=== PATIENT | male | born 1955 | race Caucasian/White ===

== ENCOUNTER 2017-04-07 15:02 | Emergency (ER) | payer OTHER ==
--- NOTE | 2017-04-07 15:23 | PDOC ---
Rapid Medical Evaluation Time Seen by Provider: 04/07/17 15:19 Medical Evaluation: 04/07/17 15:19 Pt presents to the ED: tripped and fell this am and injured rt arm Pt on brief exam: rt wrist tenderness Pt ordered for: xray Pt to proceed to the ED 04/07/17 15:21 Discharge Disposition - Diagnosis Wrist injury - Referrals - Patient Instructions - Post Discharge Activity
[2017-04-07 15:24] VITALS: BP 153/79; PULSE 83; TEMP 98.3; BMI 24.2
--- NOTE | 2017-04-07 16:37 | PDOC ---
History of Present Illness - General Chief Complaint: Injury Stated Complaint: RT HAND/WRIST PAIN Time Seen by Provider: 04/07/17 15:19 History Source: Patient Exam Limitations: No Limitations - History of Present Illness Initial Comments: 04/07/17 16:02 slipped and fell onto right wrist this morning on ice. Fell onto outstretched hand. Complaints of pain and swelling to wrist with immobility. No other injury 04/07/17 16:40 Occurred: reports: just prior to arrival Severity: reports: moderate Pain Location: reports: upper extremity (right wrist and hand) Modifying Factors: improves with: cold therapy Associated Symptoms (Fall): denies symptoms Past History - Travel Traveled outside of the country in the last 30 days: No Close contact w/someone who was outside of country & ill: No - Past Medical History Allergies/Adverse Reactions: Allergies Allergy/AdvReac Type Severity Reaction Status Date / Time No Known Allergies Allergy Verified 04/07/17 15:19 Home Medications: Ambulatory Orders Oxycodone HCl/Acetaminophen [Percocet 5-325 mg Tablet -] 1 - 2 tab PO Q4H PRN # 10 tablet MDD 4 04/07/17 COPD: No - Suicide/Smoking/Psychosocial Hx Smoking History: Never smoked Review of Systems - Review of Systems Able to Perform ROS?: Yes Is the patient limited Fijian proficient: Yes Constitutional: Yes: Symptoms Reported, See HPI. No: Fever, Malaise HEENTM: Yes: See HPI. No: Symptoms Reported Musculoskeletal: Yes: Symptoms Reported, See HPI, Joint Pain (right wrist), Joint Swelling, Joint Stiffness All Other Systems: Reviewed and Negative *Physical Exam - Vital Signs Last Vital Signs Temp Pulse Resp BP Pulse Ox 98.3 F 83 16 153/79 96 04/07/17 15:20 04/07/17 15:20 04/07/17 15:20 04/07/17 15:20 04/07/17 15:20 - Physical Exam General Appearance: Yes: Nourished, Appropriately Dressed, Apparent Distress HEENT: positive: JOHN, Normal ENT Inspection, TMs Normal, Pharynx Normal Musculoskeletal: positive: Normal Inspection Extremity: positive: Normal Capillary Refill, Normal Range of Motion. negative : Normal Inspection (pollen and painful distal radius and ulna, without crepitus or step-offs but unable to flex or extend at wrist joint. Squeezing reproduces pain at wrist, and complains of snuffbox tenderness. Has range of motion of fingers and neurovascular intact.) Integumentary: positive: Normal Color, Dry, Warm, Swelling, Ecchymosis Neurologic: positive: automation control integrator II-XII NML intact, Fully Oriented, Alert, Normal Mood/ Affect Procedures - Splinting Splint Location: Left: Hand (thumb spica splint), Right: Wrist Post-Proc Neuro Vasc Exam: normal Sling: Yes Progress Note - Progress Note Progress Note: Right wrist sprain, splinted with sling we'll provide a few Percocet for severe pain and encourage follow up in one to 2 days for reevaluation and possible casting *DC/Admit/Observation/Transfer Diagnosis at time of Disposition: Wrist injury Qualifiers: Encounter type: initial encounter Laterality: right Qualified Code(s): S69.91XA - Unspecified injury of right wrist, hand and finger(s), initial encounter - Discharge Dispostion Disposition: HOME Condition at time of disposition: Stable Admit: No - Referrals Referrals: London Rand MD [Staff Physician] - - Patient Instructions Printed Discharge Instructions: DI for Wrist Sprain Additional Instructions: Rest, ice to area on and off for 15 minutes 4-6 times a day Avoid heavy lifting or exercise until pain and swelling is resolved or until further directed Keep area highly elevated to reduce swelling Use splints/Cain wrap as directed Followup with orthopedist in one to 2 days if not improving, if significantly improved may wait one week for followup with orthopedist May use ibuprofen 2-200 mg tablets every 6 hours as needed for pain - Post Discharge Activity Forms/Work/School Notes: Back to Work
== END 2017-04-07 16:51 | disposition home or self-care (01) ==
LOC: JERFT 15:02
PROC: 2W3CX1Z Immobilization of Right Lower Arm using Splint (ICD-10-PCS; principal; 2017-04-07)
DX: S69.81XA Other specified injuries of right wrist, hand and finger(s), initial encounter (principal); W00.0XXA Fall on same level due to ice and snow, initial encounter; Y93.89 Activity, other specified; Y92.89 Other specified places as the place of occurrence of the external cause
CPT/HCPCS: 29125; 73110-TC-RT; 99282-25

== ENCOUNTER 2018-10-16 11:44 | Inpatient (IN) | payer OTHER ==
--- NOTE | 2018-10-16 15:28 | PDOC ---
History of Present Illness - General Chief Complaint: Wound Stated Complaint: LOWER BACK PAIN/ BLACKNESS IN FEET/ DIABETIC Time Seen by Provider: 10/16/18 15:11 History Source: Patient Exam Limitations: No Limitations - History of Present Illness Initial Comments: 10/16/18 15:28 63-year-old male with history of hypertension and diabetes presents ED for nonhealing red area to bilateral inner feet worse on the left foot. Patient states went to his primary care physician on the and was prescribed topical creams including Silvadene and placed on clindamycin which he states has been taking for the past 2 days with no improvement. Patient complains of soreness to the area along with mild itching. Patient denies elevated glucose, recent travel, recent injury, or radiation of pain. Severity: moderate Associated Symptoms: reports: other Past History - Travel Traveled outside of the country in the last 30 days: No Close contact w/someone who was outside of country & ill: No - Past Medical History Allergies/Adverse Reactions: Allergies Allergy/AdvReac Type Severity Reaction Status Date / Time No Known Allergies Allergy Verified 10/16/18 11:48 Home Medications: Ambulatory Orders Oxycodone HCl/Acetaminophen [Percocet 5-325 mg Tablet -] 1 - 2 tab PO Q4H PRN # 10 tablet MDD 4 04/07/17 COPD: No Diabetes: Yes - Surgical History Cardiac Surgery: Yes (PACEMAKER) - Immunization History Immunization Up to Date: No - Suicide/Smoking/Psychosocial Hx Smoking History: Never smoked Hx Alcohol Use: No Drug/Substance Use Hx: No Patient Lives Alone: No Lives with/in: spouse/SO Review of Systems - Review of Systems Able to Perform ROS?: No Is the patient limited Thai proficient: No Constitutional: No: Symptoms Reported HEENTM: No: Symptoms Reported Respiratory: No: Symptoms reported Cardiac (ROS): No: Symptoms Reported ABD/GI: No: Symptoms Reported Musculoskeletal: Yes: Joint Pain (analy feet) Integumentary: Yes: Change in Color, Erythema Neurological: No: Paresthesia, Weakness Endocrine: No: Symptoms Reported Hematologic/Lymphatic: No: Symptoms Reported *Physical Exam - Vital Signs Last Vital Signs Temp Pulse Resp BP Pulse Ox 97.3 F L 77 18 129/71 99 10/16/18 11:49 10/16/18 11:49 10/16/18 11:49 10/16/18 11:49 10/16/18 11:49 - Physical Exam General Appearance: Yes: Nourished, Appropriately Dressed. No: Apparent Distress Vascular Pulses: Dorsalis-Pedis (R): 2+, Doralis-Pedis (L): 2+ Extremity: positive: Normal Capillary Refill, Normal Range of Motion. negative : Normal Inspection (noted 7 x 8 cm erythematous area to medial aspect of midfoot. No increased warmth. No raised masses no palpable fluctuance. Left foot greater than the right) Neurologic: positive: Motor Strength 5/5 (ambulatory) ED Treatment Course - LABORATORY CBC & Chemistry Diagram: 10/17/18 06:30 10/17/18 06:30 Medical Decision Making - Medical Decision Making 10/16/18 [id number] chief complaint: redness and pain to bilateral mid foot. Placed on clindamycin and topical creams on the which he states has not improved discomfort or appearance patient does state purchase new shoes approximately one week ago which he has been wearing for the past few days. Exam: Noted erythematous circular area approximately 7 centimeters in circumference of the left foot and 4 cm to the right foot. Palpable pulses and no fluctuance noted Plan: Secondary to patient's history of diabetes, patient will have lab work done including lactic acid duplex of the lower extremity along with Percocet. *DC/Admit/Observation/Transfer Diagnosis at time of Disposition: Cellulitis of both feet - Referrals - Patient Instructions - Post Discharge Activity
[2018-10-16 16:13] LABS: BASO % 0.8 % (0-2.0); HEMOGLOBIN 16.1 GM/dL (11.7-16.9); LYMPH % 21.4 % (8-40); MCH 29.2 pg (25.7-33.7); MCHC 34.3 g/dl (32.0-35.9); MEAN CELL VOLUME 85.3 fl (80-96); MEAN PLT VOLUME 8.2 fl (7.5-11.1); MONO % 8.5 % (3.8-10.2); NEUT % 68.3 % (42.8-82.8); PLATELET COUNT 258 K/MM3 (134-434); RBC 5.51 M/mm3 (4.00-5.60); RDW 12.4 % (11.9-15.9)
[2018-10-16 16:39] LABS: INR 0.94 (0.83-1.09); PROTHROMBIN TIME (PATIENT) 11.1 SEC (9.7-13.0)
--- NOTE | 2018-10-16 16:43 | PDOC ---
*Physical Exam - Vital Signs Last Vital Signs Temp Pulse Resp BP Pulse Ox 97.3 F L 77 18 129/71 99 10/16/18 11:49 10/16/18 11:49 10/16/18 11:49 10/16/18 11:49 10/16/18 11:49 - Physical Exam Comments: 10/16/18 16:41 Honorio reports 2 weeks with redness to b/l feet. Was seen at [facility] by Dr. Gomez but has not had any improvement of his feet . Patient states he did not take his diabetes medicine today. Patient has IDDM. ultrasound negative for dvt. 10/16/18 20:27 x-ray negative for osteo, no soft tissue gas appreciated. Discussed case with admitting hospitalist MD Razo, who accepts patient for inpatient admission. ED Treatment Course - LABORATORY CBC & Chemistry Diagram: 10/16/18 16:00 10/16/18 16:00 - ADDITIONAL ORDERS Additional order review: Laboratory Results 10/16/18 10/16/18 16:00 16:00 PT with INR 11.10 INR 0.94 Lactic Acid 1.1 10/16/18 16:00 RBC 5.51 MCV 85.3 MCHC 34.3 RDW 12.4 MPV 8.2 Neutrophils % 68.3 Lymphocytes % 21.4 Monocytes % 8.5 Eosinophils % 1.0 Basophils % 0.8 - Medications Given in the ED: ED Medications Discontinued Medications Generic Name Dose Route Start Last Admin Trade Name Freq PRN Reason Stop Dose Admin Oxycodone/Acetaminophen 1 combo 10/16/18 15:33 10/16/18 16:00 Percocet 5/325 - PO 10/16/18 15:34 1 combo ONCE ONE Administration *DC/Admit/Observation/Transfer Diagnosis at time of Disposition: Cellulitis of both feet - Discharge Dispostion Decision to Admit order: Yes - Referrals - Patient Instructions - Post Discharge Activity
[2018-10-16 16:53] LABS: ALBUMIN 3.7 g/dl (3.4-5.0); BILIRUBIN,TOTAL 0.8 mg/dL (0.2-1); BLOOD UREA NITROGEN 32.8 mg/dL (7-18); CREATININE 1.3 mg/dL (0.55-1.3); POTASSIUM 4.8 mmol/L (3.5-5.1); TOT PROT 7.1 g/dl (6.4-8.2)
[2018-10-16] MEDS ORDERED: SODIUM CHLORIDE 0.9% 500 ML INFUS.BAG IV ONE (17:50)
[2018-10-16] MEDS ORDERED: INSULIN REGULAR HUMAN 100 UNITS/ML *VIAL IVPUSH ONE (17:50)
[2018-10-16] MEDS ORDERED: INSULIN (NOVOLOG) ASPART 100 UNITS/ML 10ML VIAL ONE ×2 (18:19→23:32)
[2018-10-16] MEDS ORDERED: CLINDAMYCIN 600MG PREMIX IVPB 600 MG/50 ML BAG IVPB ONE (19:10)
--- NOTE | 2018-10-16 19:56 | PN ---
Teaching Attending Note Name of Resident: Miriam Razo ATTENDING PHYSICIAN STATEMENT I saw and evaluated the patient. I reviewed the resident's note and discussed the case with the resident. I agree with the resident's findings and plan as documented. SUBJECTIVE: Patient is a 63 year old man with PMH of Hypertension, Pacemaker and NIDDM who presents to the ER for nonhealing red areas to bilateral inner feet worse on the left foot. Patient states went to his primary care physician on the and was prescribed Silvadene and placed on clindamycin which he states has been taking for the past 2 days with no improvement. Patient complains of soreness to the area along with mild itching. Patient denies elevated glucose, recent travel, recent injury, or radiation of pain. Denies fever, chills, vomiting, chest pain, SOB, diarrhea or dysuria. OBJECTIVE: Alert Vital Signs Period Temp Pulse Resp BP Sys/Katz Pulse Ox Last 24 Hr 97.3 F 77 18 129/71 99 HEENT: No Jaundice, eye redness or discharge, PERRLA, EOMI. Normocephalic, atraumatic. External ears are normal and hearing is grossly intact. No nasal discharge. Neck: Supple, nontender. No palpable adenopathy or thyromegaly. No JVD Chest: Good effort. Clear to auscultation and percussion. Heart: Regular. No S3, rub or murmur Abdomen: Not distended, soft, nontender and no HSM. No rebound or guarding. Normal bowel sounds. Ext: Peripheral pulses intact. No leg edema. Erythematous circular area medial aspect of feet -L>R with associated papular rash. No fluctuance or crepitus. Skin: Warm and dry. No petechiae, rash or ecchymosis. Neuro: Alert. Oriented x3. CN 2-12 grossly intact. Sensation grossly intact in all four extremities and DTR are symmetric. Psych: Appropriate mood and affect. Good insight. Home Medications Medication Instructions Recorded Oxycodone HCl/Acetaminophen 1 - 2 tab PO Q4H PRN #10 tablet 04/07/17 [Percocet 5-325 mg Tablet -] MDD 4 Abnormal Lab Results 10/16/18 16:00 Sodium 130 L BUN 32.8 H Random Glucose 433 H* ASSESSMENT AND PLAN: 1. Bilateral foot cellulitis - May have started out as a rash due to irritation from his new shoes. Foot x-rays are unremarkable and no DVT noted on leg doppler. Send blood for RPR. Will treat with IV Vancomycin and Rocephin; Consult ID and Podiatry. 2. Uncontrolled DM For now, we will hold the home diabetes drugs and implement sliding scale insulin regimen. Hydrate with IV NS. Provide comprehensive diabetes care with patient teaching and counseling about the importance of adherence to prescribed diabetes regimen, euglycemia, eye care and foot care. 3. Hypertension - Restart suitable outpatient antihypertensive drugs when clinically appropriate. Revise regimen to ensure good BP control. Nonpharmacologic measures to control hypertension like weight loss, salt restriction and exercise discussed. 4. DVT prophylaxis - Lovenox 40 mg SQ q 24 hours. 5. Advance directives - Full code
--- NOTE | 2018-10-16 21:10 | HP ---
CHIEF COMPLAINT: b/l feet skin changes PCP: HISTORY OF PRESENT ILLNESS: Patient is a 63 y/o male with a history of htn and diabetes who presents for skin changes on his bilateral feet. Patient has had these changes for a few weeks. He notes it hurts a little and only itches a little. He recently saw a photoengraving retoucher who ordered him clindamycin and cream which has not helped yet. [place] and he had sex with his girlfriend without a condom. Denies any pain on urination, fever, chills, nausea, chest pain, or vomiting. Patient is sometimes compliant with his medications. Patient recently had new shoes and that is the only thing that is new. No one in the house has similar symptoms. ER course was notable for: (1) (2) (3) Recent Travel: PAST MEDICAL HISTORY: HTN and DM PAST SURGICAL HISTORY: Social History: Smoking: denies Alcohol: denies Drugs: Family History: Allergies No Known Allergies Allergy (Verified 10/16/18 11:48) HOME MEDICATIONS: Home Medications Medication Instructions Recorded Oxycodone HCl/Acetaminophen 1 - 2 tab PO Q4H PRN #10 tablet 04/07/17 [Percocet 5-325 mg Tablet -] MDD 4 REVIEW OF SYSTEMS CONSTITUTIONAL: Absent: fever, chills, diaphoresis, generalized weakness, malaise, loss of appetite, weight change HEENT: Absent: rhinorrhea, nasal congestion, throat pain, throat swelling, difficulty swallowing, mouth swelling, ear pain, eye pain, visual changes CARDIOVASCULAR: Absent: chest pain, syncope, palpitations, irregular heart rate, lightheadedness , peripheral edema RESPIRATORY: Absent: cough, shortness of breath, dyspnea with exertion, orthopnea, wheezing, stridor, hemoptysis GASTROINTESTINAL: Absent: abdominal pain, abdominal distension, nausea, vomiting, diarrhea, constipation, melena, hematochezia GENITOURINARY: Absent: dysuria, frequency, urgency, hesitancy, hematuria, flank pain, genital pain MUSCULOSKELETAL: Absent: myalgia, arthralgia, joint swelling, back pain, neck pain SKIN: Absent: rash, itching, pallor HEMATOLOGIC/IMMUNOLOGIC: Absent: easy bleeding, easy bruising, lymphadenopathy, frequent infections ENDOCRINE: Absent: unexplained weight gain, unexplained weight loss, heat intolerance, cold intolerance NEUROLOGIC: Absent: headache, focal weakness or paresthesias, dizziness, unsteady gait, seizure, mental status changes, bladder or bowel incontinence PSYCHIATRIC: Absent: anxiety, depression, suicidal or homicidal ideation, hallucinations. PHYSICAL EXAMINATION Vital Signs - 24 hr 10/16/18 11:49 Temperature 97.3 F L Pulse Rate 77 Respiratory 18 Rate Blood Pressure 129/71 O2 Sat by Pulse 99 Oximetry (%) GENERAL: Awake, alert, and fully oriented, in no acute distress. HEAD: Normal with no signs of trauma. EYES: Pupils equal, round and reactive to light, extraocular movements intact, LUNGS: Breath sounds equal, clear to auscultation bilaterally. No wheezes, and no crackles. No accessory muscle use. HEART: Regular rate and rhythm, normal S1 and S2 without murmur, rub or gallop. pacemaker upper left chest ABDOMEN: Soft, nontender, not distended, normoactive bowel sounds, no guarding : some erythema in groin, no ulcers noted on penis LOWER EXTREMITIES: 2+ pulses, warm, well-perfused. No calf tenderness. No peripheral edema. NEUROLOGICAL: Cranial nerves II-XII intact. Normal speech. Normal gait. SKIN: erythema on medial and lateral feet, macular papular, also on soles, on medial right foot darker center with some edema, tenderness to touch , soles of hands with some papules and erythema CBC, BMP 10/16/18 16:00 10/16/18 16:00 Active Medications Acetaminophen (Tylenol -) 650 mg PO Q4H PRN PRN Reason: PAIN Heparin Sodium (Porcine) (Heparin -) 5,000 unit SQ Q8H-IV VINCENT Insulin Aspart (Novolog Vial Sliding Scale -) 0 vial SQ ACHS VINCENT; Protocol ASSESSMENT/PLAN: Patient is a 63 y/o male with a history of htn and diabetes who presents for skin changes on his bilateral feet. #B/l feet skin changes - cellutlitis vs syphillis vs irritation of feet - f/u RPR, per patient rash on soles and hands - Vanc and Ceftriaxone - ID Dr. Lane - consulted podiatry - b/l foot xray: without gas or fractures, wait for official read #DM - SS - BGMS ACHS - f/u A1C #HTN - controlled as per now - restart home meds once confirmed #DVT ppx - lovenox 40 sq FEN - low sodium and diabetic diet Dispo: monitor on med surg Visit type - Emergency Visit Emergency Visit: Yes ED Registration Date: 10/16/18 Care time: The patient presented to the Emergency Department on the above date and was hospitalized for further evaluation of their emergent condition. - New Patient This patient is new to me today: Yes Date on this admission: 10/16/18 - Critical Care Critical Care patient: No ATTENDING PHYSICIAN STATEMENT I saw and evaluated the patient. I reviewed the resident's note and discussed the case with the resident. I agree with the resident's findings and plan as documented. SUBJECTIVE: OBJECTIVE: ASSESSMENT AND PLAN:
[2018-10-16] MEDS ORDERED: CEFTRIAXONE 1 GM/50 ML BAG ONE (21:47)
[2018-10-16] MEDS: CEFTRIAXONE 1 GM in DEXTROSE 5%-WATER - 50 ML IVPB SCH (23:20)
[2018-10-16] MEDS: INSULIN SLIDING SCALE (NOVOLOG) 1 VIAL SQ SCH (23:30)
[2018-10-17] MEDS ORDERED: HEPARIN NA (PORCINE) 5,000 UNITS/ML 1ML VIAL SQ SCH (02:00)
[2018-10-17 03:49] VITALS: BMI 22.6
[2018-10-17] MEDS: INSULIN SLIDING SCALE (NOVOLOG) 1 VIAL SQ SCH ×4 (06:38→21:01)
[2018-10-17 08:24] LABS: ALBUMIN 3.2 g/dl (3.4-5.0); BILIRUBIN,TOTAL 0.5 mg/dL (0.2-1); BLOOD UREA NITROGEN 24.9 mg/dL (7-18); CALCIUM 8.4 mg/dL (8.5-10.1); CREATININE 0.9 mg/dL (0.55-1.3); MAGNESIUM 2.3 mg/dL (1.8-2.4); PHOSPHOROUS 4.1 mg/dL (2.5-4.9); POTASSIUM 4.7 mmol/L (3.5-5.1); TOT PROT 6.3 g/dl (6.4-8.2)
[2018-10-17 08:34] LABS: BASO % 0.7 % (0-2.0); HEMATOCRIT 41.9 % (35.4-49); HEMOGLOBIN 14.8 GM/dL (11.7-16.9); LYMPH % 22.7 % (8-40); MCH 29.7 pg (25.7-33.7); MCHC 35.3 g/dl (32.0-35.9); MEAN PLT VOLUME 8.2 fl (7.5-11.1); MONO % 10.9 % (3.8-10.2); NEUT % 62.7 % (42.8-82.8); PLATELET COUNT 206 K/MM3 (134-434); RBC 4.99 M/mm3 (4.00-5.60); RDW 12.3 % (11.9-15.9); WHITE BLOOD COUNT 5.7 K/mm3 (4.0-10.0)
[2018-10-17] MEDS ORDERED: DEXTROSE 5%-WATER - 50 ML IVPB ONE (09:53)
[2018-10-17] MEDS ORDERED: cefTRIAXone SODIUM 1 GM VIAL ONE (09:53)
[2018-10-17] MEDS ORDERED: ENOXAPARIN NA (PORCINE) 40 MG/0.4 ML DISP.SYRIN SQ SCH (10:00)
[2018-10-17] MEDS: CEFTRIAXONE 1 GM in DEXTROSE 5%-WATER - 50 ML IVPB SCH (10:08)
--- NOTE | 2018-10-17 12:10 | PN ---
Progress Note (short form) - Note Progress Note: ID CONSULT DICTATED CELLULITIS, FEET BILAT POORLY CONTROLLED DM EMPIRIC CEFAZOLIN HIV TESTING
--- NOTE | 2018-10-17 12:34 | CONS ---
INFECTIOUS DISEASE CONSULTATION DATE OF CONSULTATION: DATE OF DICTATION: 10/17/2018 HISTORY: A 63-year-old diabetic male evaluated for bilateral foot cellulitis. He presents to the emergency room with a [id number] of worsening erythema and burning pain of his feet bilaterally. He had seen his primary care physician on October 14, 2018 at which time he was diagnosed with cellulitis and prescribed clindamycin. Patient now presents with worsening erythema and pain of his lower extremities bilaterally. He does admit to walking barefoot at times and having ill-fitting shoes. He denies any associated fever or chills. He was noted on admission to have markedly elevated blood sugar and a hemoglobin A1C of 10.3. PAST MEDICAL HISTORY: Positive for diabetes mellitus, hypertension. ALLERGIES: No known allergies. LABORATORY DATA: White count 5.7, creatinine 0.9. RPR negative. Doppler negative DVT. PHYSICAL EXAMINATION: General: He is awake and alert. He is a thin male. Vital Signs: Temperature 97.8, blood pressure 152/76, pulse 61 regular, respirations 18 per minute. HEENT: Sclerae anicteric. Heart: Sounds S1, S2. Lungs: Clear. Abdomen: Soft, nontender. Genitourinary: No penile lesions noted; however, positive tinea cruris. Extremities: Examination of lower extremities, there are numerous healed wounds present on the pretibial areas bilaterally. Examination of the feet, there is slight swelling of both feet with erythema involving the medial and lateral aspects of both feet. No crepitus or fluctuance. No open wounds. No purulent drainage. No lymphangitic streaking. IMPRESSION: 1. Bilateral foot cellulitis. 2. Uncontrolled diabetes mellitus. PLAN: Obtain cultures. Empiric antibiotic coverage, cefazolin 2 g IV piggyback every 8 hours. Elevation. HIV testing. Thank you for the kind referral. MION JASSO M.D. [id number]
[2018-10-17] MEDS: CEFAZOLIN 2 GM/D5W 2 GM/50 ML ML IVPB SCH ×2 (13:06→18:24)
[2018-10-17] MEDS: ACETAMINOPHEN 325 MG TABLET (FP) PO PRN ×2 (14:07→23:41)
--- NOTE | 2018-10-17 15:44 | PN ---
Progress Note (short form) - Note Progress Note: Patient is c/o having bl lower extremity redness. Vital Signs Temperature 98.1 F 10/17/18 14:03 Pulse Rate 65 10/17/18 14:03 Respiratory Rate 20 10/17/18 14:03 Blood Pressure 154/74 10/17/18 14:03 O2 Sat by Pulse Oximetry (%) 99 10/17/18 03:11 GENERAL: Awake, alert, and fully oriented, in no acute distress. HEAD: Normal with no signs of trauma. EYES: Pupils equal, round and reactive to light, extraocular movements intact, LUNGS: Breath sounds equal, clear to auscultation bilaterally. No wheezes, and no crackles. No accessory muscle use. HEART: Regular rate and rhythm, normal S1 and S2 without murmur, rub or gallop. pacemaker upper left chest ABDOMEN: Soft, nontender, not distended, normoactive bowel sounds, no guarding EXTREMITIES: 2+ pulses, warm, well-perfused. No calf tenderness. No peripheral edema. NEUROLOGICAL: Cranial nerves II-XII intact. Normal speech. Normal gait. SKIN: erythema on medial and lateral feet, tenderness to touch , soles of hands with some papules and erythema CBCD WBC 5.7 K/mm3 (4.0-10.0) 10/17/18 06:30 RBC 4.99 M/mm3 (4.00-5.60) 10/17/18 06:30 Hgb 14.8 GM/dL (11.7-16.9) 10/17/18 06:30 Hct 41.9 % (35.4-49) 10/17/18 06:30 MCV 84.0 fl (80-96) 10/17/18 06:30 MCHC 35.3 g/dl (32.0-35.9) 10/17/18 06:30 RDW 12.3 % (11.9-15.9) 10/17/18 06:30 Plt Count 206 K/MM3 (134-434) D 10/17/18 06:30 MPV 8.2 fl (7.5-11.1) 10/17/18 06:30 CMP Sodium 138 mmol/L (136-145) 10/17/18 06:30 Potassium 4.7 mmol/L (3.5-5.1) 10/17/18 06:30 Chloride 104 mmol/L (98-107) 10/17/18 06:30 Carbon Dioxide 28 mmol/L (21-32) 10/17/18 06:30 Anion Gap 6 MMOL/L (8-16) L 10/17/18 06:30 BUN 24.9 mg/dL (7-18) H 10/17/18 06:30 Creatinine 0.9 mg/dL (0.55-1.3) 10/17/18 06:30 Random Glucose 111 mg/dL (74-106) H 10/17/18 06:30 Calcium 8.4 mg/dL (8.5-10.1) L 10/17/18 06:30 Total Bilirubin 0.5 mg/dL (0.2-1) 10/17/18 06:30 AST 21 U/L (15-37) 10/17/18 06:30 ALT 35 U/L (13-61) 10/17/18 06:30 Alkaline Phosphatase 90 U/L (45-117) 10/17/18 06:30 Total Protein 6.3 g/dl (6.4-8.2) L 10/17/18 06:30 Albumin 3.2 g/dl (3.4-5.0) L 10/17/18 06:30 Current Medications Generic Name Dose Route Start Last Admin Trade Name Freq PRN Reason Stop Dose Admin Acetaminophen 650 mg 10/16/18 20:57 10/17/18 14:07 Tylenol - PO 650 mg Q4H PRN Administration PAIN Cefazolin Sodium/Dextrose 2 gm in 50 mls @ 100 mls/hr 10/17/18 12:15 13:06 Ancef 2 Gm Premixed Ivpb - IVPB 100 mls/hr Q8H-IV VINCENT Administration Insulin Aspart 0 vial 10/16/18 22:00 10/17/18 12:03 Novolog Vial Sliding Scale - SQ 6 unit ACHS VINCENT Administration Protocol Home Medications Medication Instructions Recorded Oxycodone HCl/Acetaminophen 1 - 2 tab PO Q4H PRN #10 tablet 04/07/17 [Percocet 5-325 mg Tablet -] MDD 4 Assessment and plan: Patient is a 63 y/o male with PMhx of HTN, T2DM, who presents with BL lower extremity cellulitis # Acute cellulitis of lower extremities on IV Cefazolin , HIV TESTING by , c/o having back pain will get Lspine xray #T2DM : SS; BGMS ACHS, f/u A1C #HTN: controlled as per now #DVT ppx: lovenox 40 sq Visit type - Emergency Visit Emergency Visit: Yes ED Registration Date: 10/16/18 Care time: The patient presented to the Emergency Department on the above date and was hospitalized for further evaluation of their emergent condition. - New Patient This patient is new to me today: Yes Date on this admission: 10/17/18 - Critical Care Critical Care patient: No - Discharge Referral Referred to [facility] Med P.C.: No
--- NOTE | 2018-10-18 00:05 | EKG ---
Test Reason : Blood Pressure : / mmHG Vent. Rate : 060 BPM Atrial Rate : 060 BPM P-R Int : 204 ms QRS Dur : 172 ms QT Int : 504 ms P-R-T Axes : 036 217 090 degrees QTc Int : 504 ms AV dual-paced rhythm ABNORMAL ECG NO PREVIOUS ECGS AVAILABLE Confirmed by ROSITA VIVEROS MD ([id number]) on 10/18/2018 12:04:40 AM Referred By: Confirmed By:ROSITA VIVEROS MD
[2018-10-18] MEDS: CEFAZOLIN 2 GM/D5W 2 GM/50 ML ML IVPB SCH ×3 (02:28→17:50)
[2018-10-18] MEDS: INSULIN SLIDING SCALE (NOVOLOG) 1 VIAL SQ SCH ×4 (06:23→21:19)
[2018-10-18] MEDS ORDERED: PT OWN MED DRAWER 7, Y5N ONE (08:40)
[2018-10-18] MEDS: ACETAMINOPHEN 325 MG TABLET (FP) PO PRN ×2 (10:55→21:25)
--- NOTE | 2018-10-18 12:11 | CONSULT ---
Consult - text type - Consultation Consultation Note: Patient is a 63 y/o male with a history of htn and diabetes who presents for skin changes on his bilateral feet. Patient has had these changes for a few weeks. Hurts some especially when walking in the hospital socks. A1c at roughly 10. Denies any other pedal conditions. O: Vascular status intact b/l dp/p 2,4 , temp gradient wnl, Cap fill time wnl Derm: b/l erythema noted plantarly an medially ont he feet with darkening, no streaking proximally, improved compared to markers placed on skin since yesterday, no open lesions, no signs of deep infection at this time to be noted Neuro: intact. A: b/l cellulitis p: evaluated and reviewed no signs of open wound or deep infection at this time cellulitis with mild sign of improvement judging by skin markers Cont iv abx per id.
[2018-10-18] MEDS ORDERED: oxyCODONE HCL 5 MG TABLET PO PRN (12:38)
--- NOTE | 2018-10-18 13:02 | PN ---
Physical Exam: SUBJECTIVE: Patient seen and examined. No acute events overnight. Pt complains of pain in feet. OBJECTIVE: Vital Signs Period Temp Pulse Resp BP Sys/Katz Pulse Ox Last 24 Hr 97.8 F-98.1 F 61-65 17-20 146-172/61-80 99-99 GENERAL: The patient is awake, alert, and fully oriented, in no acute distress. HEAD: Normal with no signs of trauma. EYES: PERRL, extraocular movements intact, sclera anicteric, conjunctiva clear. No ptosis. ENT: Ears normal, nares patent, oropharynx clear without exudates, moist mucous membranes. NECK: Trachea midline, full range of motion, supple. LUNGS: Breath sounds equal, clear to auscultation bilaterally, no wheezes, no crackles, no accessory muscle use. HEART: Regular rate and rhythm, S1, S2 without murmur, rub or gallop. ABDOMEN: Soft, nontender, nondistended, normoactive bowel sounds, no guarding, no rebound, no hepatosplenomegaly, no masses. EXTREMITIES: 2+ pulses, warm, well-perfused, no edema. NEUROLOGICAL: Cranial nerves II through XII grossly intact. Normal speech, gait not observed. PSYCH: Normal mood, normal affect. SKIN: Erythema on medial and lateral feet, macular papular, also on soles, on medial right foot darker center with some edema, tenderness to touch, soles of hands with some papules and erythema. Improving compared to markers placed on skin yesterday. No open lesions or deep infection noted. Laboratory Results - last 24 hr 10/17/18 10/17/18 10/18/18 17:18 20:57 05:50 POC Glucometer 351 182 174 CBC, BMP 10/17/18 06:30 10/17/18 06:30 Active Medications Acetaminophen (Tylenol -) 650 mg PO Q4H PRN PRN Reason: PAIN Last Admin: 10/18/18 10:55 Dose: 650 mg Cefazolin Sodium/Dextrose (Ancef 2 Gm Premixed Ivpb -) 2 gm in 50 mls @ 100 mls /hr IVPB Q8H-IV VINCENT Last Admin: 10/18/18 08:59 Dose: 100 mls/hr Insulin Aspart (Novolog Vial Sliding Scale -) 0 vial SQ ACHS V[facility]ENT; Protocol Last Admin: 10/18/18 12:06 Dose: 10 unit Oxycodone HCl (Roxicodone -) 2.5 mg PO Q4H PRN PRN Reason: PAIN LEVEL 4 - 6 Zinc Acetate/Diphenhydramine (Benadryl 2% Cream) 1 applic TP DAILY VINCENT Last Admin: 10/18/18 08:59 Dose: 1 applic ASSESSMENT/PLAN: Patient is a 63 y/o male with a history of HTN and IDDM who presents for skin changes on his bilateral feet. #Cellulitis BL lower extremities Continue Cefazolin 2gm, per ID (Day 2) Podiatry on board, evaluating daily BL foot XR: without gas or fractures, no signs of osteomyelitis Oxycodone 2.5mg Q4H prn for pain #DM Hgb A1C: 10.3% Continue SSI BGMS ACHS Endocrine consulted #HTN Controlled as per now Pt states he takes Enalapril at home. Will confirm with pharmacy when open on Friday. #DVT ppx Lovenox 40 sq #FEN Low sodium and diabetic diet No fluids at this time #Dispo: monitor on med surg Visit type - Emergency Visit Emergency Visit: No - New Patient This patient is new to me today: No - Critical Care Critical Care patient: No ATTENDING PHYSICIAN STATEMENT I saw and evaluated the patient. I reviewed the resident's note and discussed the case with the resident. I agree with the resident's findings and plan as documented. SUBJECTIVE: OBJECTIVE: ASSESSMENT AND PLAN:
--- NOTE | 2018-10-18 15:02 | PN ---
Teaching Attending Note Name of Resident: Rhonda Sharp ATTENDING PHYSICIAN STATEMENT I saw and evaluated the patient. I reviewed the resident's note and discussed the case with the resident. I agree with the resident's findings and plan as documented. SUBJECTIVE: Patient is complaining of having low back pain OBJECTIVE: Vital Signs Temperature 97.8 F 10/18/18 14:09 Pulse Rate 62 10/18/18 14:09 Respiratory Rate 20 10/18/18 14:09 Blood Pressure 152/74 10/18/18 14:09 O2 Sat by Pulse Oximetry (%) 99 10/18/18 09:00 GENERAL: Awake, alert, and fully oriented, in no acute distress. HEAD: Normal with no signs of trauma. EYES: Pupils equal, round and reactive to light, extraocular movements intact, LUNGS: Breath sounds equal, clear to auscultation bilaterally. No wheezes, and no crackles. No accessory muscle use. HEART: Regular rate and rhythm, normal S1 and S2 without murmur, rub or gallop. pacemaker upper left chest ABDOMEN: Soft, nontender, not distended, normoactive bowel sounds, no guarding EXTREMITIES: 2+ pulses, warm, well-perfused. No calf tenderness. No peripheral edema. NEUROLOGICAL: Cranial nerves II-XII intact. Normal speech. Normal gait. SKIN: erythema on medial and lateral feet, tenderness to touch CBCD WBC 5.7 K/mm3 (4.0-10.0) 10/17/18 06:30 RBC 4.99 M/mm3 (4.00-5.60) 10/17/18 06:30 Hgb 14.8 GM/dL (11.7-16.9) 10/17/18 06:30 Hct 41.9 % (35.4-49) 10/17/18 06:30 MCV 84.0 fl (80-96) 10/17/18 06:30 MCHC 35.3 g/dl (32.0-35.9) 10/17/18 06:30 RDW 12.3 % (11.9-15.9) 10/17/18 06:30 Plt Count 206 K/MM3 (134-434) D 10/17/18 06:30 MPV 8.2 fl (7.5-11.1) 10/17/18 06:30 CMP Sodium 138 mmol/L (136-145) 10/17/18 06:30 Potassium 4.7 mmol/L (3.5-5.1) 10/17/18 06:30 Chloride 104 mmol/L (98-107) 10/17/18 06:30 Carbon Dioxide 28 mmol/L (21-32) 10/17/18 06:30 Anion Gap 6 MMOL/L (8-16) L 10/17/18 06:30 BUN 24.9 mg/dL (7-18) H 10/17/18 06:30 Creatinine 0.9 mg/dL (0.55-1.3) 10/17/18 06:30 Random Glucose 111 mg/dL (74-106) H 10/17/18 06:30 Calcium 8.4 mg/dL (8.5-10.1) L 10/17/18 06:30 Total Bilirubin 0.5 mg/dL (0.2-1) 10/17/18 06:30 AST 21 U/L (15-37) 10/17/18 06:30 ALT 35 U/L (13-61) 10/17/18 06:30 Alkaline Phosphatase 90 U/L (45-117) 10/17/18 06:30 Total Protein 6.3 g/dl (6.4-8.2) L 10/17/18 06:30 Albumin 3.2 g/dl (3.4-5.0) L 10/17/18 06:30 Current Medications Generic Name Dose Route Start Last Admin Trade Name Freq PRN Reason Stop Dose Admin Acetaminophen 650 mg 10/16/18 20:57 10/18/18 10:55 Tylenol - PO 650 mg Q4H PRN Administration PAIN Cefazolin Sodium/Dextrose 2 gm in 50 mls @ 100 mls/hr 10/17/18 12:15 08:59 Ancef 2 Gm Premixed Ivpb - IVPB 100 mls/hr Q8H-IV VINCENT Administration Insulin Aspart 0 vial 10/16/18 22:00 10/18/18 12:06 Novolog Vial Sliding Scale - SQ 10 unit ACHS VINCENT Administration Protocol Oxycodone HCl 2.5 mg 10/18/18 12:38 Roxicodone - PO Q4H PRN PAIN LEVEL 4 - 6 Zinc Acetate/Diphenhydramine 1 applic 10/18/18 10:00 07/21/19 08:59 Benadryl 2% Cream TP 1 applic DAILY VINCENT Administration Home Medications Medication Instructions Recorded Oxycodone HCl/Acetaminophen 1 - 2 tab PO Q4H PRN #10 tablet 04/07/17 [Percocet 5-325 mg Tablet -] MDD 4 ASSESSMENT AND PLAN: Patient is a 63 y/o male with a history of HTN and IDDM who presented for cellulitis of bilateral LEs. #Cellulitis BL lower extremities continue Cefazolin 2gm, per ID (Day 2). # Low back pain : on oxycodone 2.5mg Q4H prn for pain #DM: Hgb A1C: 10.3%, endocrine consult , Continue SSI, BGMS ACHS #HTN : continue home meds. #DVT ppx: Lovenox 40 sq
[2018-10-18] MEDS: LIDOCAINE 5% TOPICAL PATCH TP SCH (19:33)
[2018-10-19] MEDS: CEFAZOLIN 2 GM/D5W 2 GM/50 ML ML IVPB SCH ×3 (01:15→17:08)
[2018-10-19] MEDS: INSULIN SLIDING SCALE (NOVOLOG) 1 VIAL SQ SCH ×3 (06:15→16:19)
[2018-10-19] MEDS: LIDOCAINE PATCH REMOVAL MC SCH (06:16)
[2018-10-19 07:13] LABS: HEMOGLOBIN 15.2 GM/dL (11.7-16.9); MCH 29.9 pg (25.7-33.7); MCHC 35.4 g/dl (32.0-35.9); MEAN CELL VOLUME 84.5 fl (80-96); MEAN PLT VOLUME 8.3 fl (7.5-11.1); PLATELET COUNT 214 K/MM3 (134-434); RBC 5.09 M/mm3 (4.00-5.60); RDW 12.6 % (11.9-15.9); WHITE BLOOD COUNT 4.8 K/mm3 (4.0-10.0)
[2018-10-19 07:45] LABS: ALBUMIN 3.2 g/dl (3.4-5.0); BILIRUBIN,TOTAL 0.5 mg/dL (0.2-1); BLOOD UREA NITROGEN 24.2 mg/dL (7-18); CALCIUM 8.6 mg/dL (8.5-10.1); CREATININE 0.8 mg/dL (0.55-1.3); POTASSIUM 4.8 mmol/L (3.5-5.1); TOT PROT 6.3 g/dl (6.4-8.2)
[2018-10-19] MEDS ORDERED: ENALAPRIL MALEATE 10 MG TABLET (FP) PO SCH (10:00)
--- NOTE | 2018-10-19 10:02 | PN ---
Teaching Attending Note Name of Resident: Rhonda Sharp ATTENDING PHYSICIAN STATEMENT I saw and evaluated the patient. I reviewed the resident's note and discussed the case with the resident. I agree with the resident's findings and plan as documented. SUBJECTIVE: Patient is lying in bed comfortably, no fever or chills, no shortness of breath. erythema of his LE improving. OBJECTIVE: Vital Signs Temperature 98.3 F 10/19/18 05:48 Pulse Rate 61 10/19/18 05:48 Respiratory Rate 20 10/19/18 05:48 Blood Pressure 151/77 10/19/18 05:48 O2 Sat by Pulse Oximetry (%) 100 10/18/18 21:00 GENERAL: Awake, alert, and fully oriented, in no acute distress. HEAD: Normal with no signs of trauma. EYES: Pupils equal, round and reactive to light, extraocular movements intact, LUNGS: Breath sounds equal, clear to auscultation bilaterally. No wheezes, and no crackles. No accessory muscle use. HEART: Regular rate and rhythm, normal S1 and S2 without murmur, rub or gallop. pacemaker upper left chest ABDOMEN: Soft, nontender, not distended, normoactive bowel sounds, no guarding EXTREMITIES: 2+ pulses, warm, well-perfused. No calf tenderness. erythema of left foot more than right foot. NEUROLOGICAL: Cranial nerves II-XII intact. Normal speech. Normal gait. SKIN: erythema on medial and lateral feet, tenderness to touch CBCD WBC 4.8 K/mm3 (4.0-10.0) 10/19/18 06:13 RBC 5.09 M/mm3 (4.00-5.60) 10/19/18 06:13 Hgb 15.2 GM/dL (11.7-16.9) 10/19/18 06:13 Hct 43.0 % (35.4-49) 10/19/18 06:13 MCV 84.5 fl (80-96) 10/19/18 06:13 MCHC 35.4 g/dl (32.0-35.9) 10/19/18 06:13 RDW 12.6 % (11.9-15.9) 10/19/18 06:13 Plt Count 214 K/MM3 (134-434) 10/19/18 06:13 MPV 8.3 fl (7.5-11.1) 10/19/18 06:13 CMP Sodium 135 mmol/L (136-145) L 10/19/18 06:13 Potassium 4.8 mmol/L (3.5-5.1) 10/19/18 06:13 Chloride 103 mmol/L (98-107) 10/19/18 06:13 Carbon Dioxide 24 mmol/L (21-32) 10/19/18 06:13 Anion Gap 8 MMOL/L (8-16) 10/19/18 06:13 BUN 24.2 mg/dL (7-18) H 10/19/18 06:13 Creatinine 0.8 mg/dL (0.55-1.3) 10/19/18 06:13 Random Glucose 182 mg/dL (74-106) H 10/19/18 06:13 Calcium 8.6 mg/dL (8.5-10.1) 10/19/18 06:13 Total Bilirubin 0.5 mg/dL (0.2-1) 10/19/18 06:13 AST 26 U/L (15-37) 10/19/18 06:13 ALT 27 U/L (13-61) 10/19/18 06:13 Alkaline Phosphatase 87 U/L (45-117) 10/19/18 06:13 Total Protein 6.3 g/dl (6.4-8.2) L 10/19/18 06:13 Albumin 3.2 g/dl (3.4-5.0) L 10/19/18 06:13 Current Medications Generic Name Dose Route Start Last Admin Trade Name Meena PRN Reason Stop Dose Admin Acetaminophen 650 mg 10/16/18 20:57 10/18/18 21:25 Tylenol - PO 650 mg Q4H PRN Administration PAIN Atorvastatin Calcium 40 mg 10/19/18 22:00 Lipitor - PO HS VINCENT Enalapril Maleate 10 mg 10/19/18 10:00 Vasotec - PO DAILY VINCENT Cefazolin Sodium/Dextrose 2 gm in 50 mls @ 100 mls/hr 10/17/18 12:15 09:28 Ancef 2 Gm Premixed Ivpb - IVPB 100 mls/hr Q8H-IV VINCENT Administration Insulin Aspart 0 vial 10/16/18 22:00 10/19/18 06:15 Novolog Vial Sliding Scale - SQ 2 unit ACHS VINCENT Administration Protocol Insulin Detemir 14 units 10/19/18 10:00 Levemir Vial SQ AM VINCENT Lidocaine 1 patch 10/18/18 18:00 10/18/18 19:33 Lidoderm Patch - TP 1 patch DAILY@1800 [facility]ENT Administration Miscellaneous 1 each 10/19/18 06:00 10/19/18 06:16 Lidoderm Patch Removal MC 1 each DAILY@0600 [facility] Administration Oxycodone HCl 2.5 mg 10/18/18 12:38 10/18/18 15:40 Roxicodone - PO 2.5 mg Q4H PRN Administration PAIN LEVEL 4 - 6 Silver Sulfadiazine 1 applic 10/19/18 10:00 Silvadene - TP BID [facility] Zinc Acetate/Diphenhydramine 1 applic 10/18/18 18:15 10/19/18 06:18 Benadryl 2% Cream TP 1 applic DAILY PRN Administration WOUND [facility] Medications Medication Instructions Recorded Oxycodone HCl/Acetaminophen 1 - 2 tab PO Q4H PRN #10 tablet 04/07/17 [Percocet 5-325 mg Tablet -] MDD 4 Atorvastatin Ca [Lipitor] 40 mg PO HS 10/19/18 Enalapril Maleate [Vasotec -] 10 mg PO DAILY 10/19/18 Insulin Glargine,Hum.rec.anlog 35 units SQ DAILY 10/19/18 [Basaglar Kwikpen U-100] Metformin HCl [Glucophage] 1,000 mg PO BID 10/19/18 Pantoprazole Sodium [Protonix] 40 mg PO DAILY 10/19/18 ASSESSMENT AND PLAN: Patient is a 63 y/o male with a history of HTN and IDDM who presented for cellulitis of bilateral LEs. #Acute bl cellulitis of lower extremities; L>R continue Cefazolin 2gm, per ID (Day 3). # Low back pain : on oxycodone 2.5mg Q4H prn for pain/Lidocaine patch 5% continue #DM: Hgb A1C: 10.3%, endocrine consult , SSI, BGMS ACHS, will start himon Levemir 14Units in am and ss the rest #HTN : continue home meds. #DVT ppx: Lovenox 40 sq
[2018-10-19] MEDS: INSULIN (LEVEMIR) 100 UNITS/ML UNITS SQ SCH (11:29)
--- NOTE | 2018-10-19 11:43 | CONSULT ---
Consult Consult Specialty:: Endocrinology Referred by:: Rhonda Sharp MD Reason for Consultation:: Hyperglycemia - History of Present Illness Chief Complaint: Feet Erythema History of Present Illness: This is a 63 y/o male with h/o HTN, T2DM for about 32 years, on Basal Insulin around 30 units per day and Metformin, HTN who presented for skin changes on his bilateral feet which started about 2 weeks ago. He c/o itching and pain over the negin. Denies any paresthesia. . He recently saw a gunnery/ordnance officer who ordered him clindamycin and cream which has not helped yet. [place] and he had sex with his girlfriend without a condom. Pt referred for management of hyperglycemia. Doesn't do FS at home regularly. Usually 150 to 250. No hospitalization for hypo or hyperglycemia. Has poor vision left eye. Saw Ophthalmology about a year ago. - History Source History Provided By: Patient, Medical Record - Past Medical History Cardio/Vascular: Yes: HTN Endocrine: Yes: Diabetes Mellitus - Alcohol/Substance Use Hx Alcohol Use: No - Smoking History Smoking history: Never smoked Home Medications - Allergies Allergies/Adverse Reactions: Allergies Allergy/AdvReac Type Severity Reaction Status Date / Time No Known Allergies Allergy Verified 10/16/18 11:48 - Home Medications Home Medications: Ambulatory Orders Oxycodone HCl/Acetaminophen [Percocet 5-325 mg Tablet -] 1 - 2 tab PO Q4H PRN # 10 tablet MDD 4 04/07/17 Atorvastatin Ca [Lipitor] 40 mg PO HS 10/19/18 Enalapril Maleate [Vasotec -] 10 mg PO DAILY 10/19/18 Insulin Glargine,Hum.rec.anlog [Basaglar Kwikpen U-100] 35 units SQ DAILY Metformin HCl [Glucophage] 1,000 mg PO BID 10/19/18 Pantoprazole Sodium [Protonix] 40 mg PO DAILY 10/19/18 Family Disease History - Family Disease History Family Disease History: Diabetes: Father Review of Systems - Review of Systems Constitutional: reports: No Symptoms Eyes: reports: No Symptoms HENT: reports: No Symptoms Neck: reports: No Symptoms Cardiovascular: reports: No Symptoms Respiratory: reports: No Symptoms Gastrointestinal: reports: No Symptoms Genitourinary: reports: No Symptoms Musculoskeletal: reports: Other (Pain and itching over both feet.) Neurological: reports: No Symptoms Endocrine: reports: No Symptoms Physical Exam Vital Signs: Vital Signs Temperature 98.3 F 10/19/18 05:48 Pulse Rate 61 10/19/18 05:48 Respiratory Rate 20 10/19/18 05:48 Blood Pressure 151/77 10/19/18 05:48 O2 Sat by Pulse Oximetry (%) 100 10/19/18 09:00 Constitutional: Yes: No Distress, Calm Eyes: Yes: Conjunctiva Clear, EOM Intact HENT: Yes: Atraumatic, Normocephalic Neck: Yes: Supple, Trachea Midline Cardiovascular: Yes: Regular Rate and Rhythm, Other (Pacemaker left ant chest wall) Respiratory: Yes: CTA Bilaterally Gastrointestinal: Yes: Normal Bowel Sounds, Soft Musculoskeletal: Yes: WNL Extremities: Yes: Erythema (both feet) Edema: No Neurological: Yes: Alert, Oriented Labs: CBC, BMP 10/19/18 06:13 10/19/18 06:13 Assessment/Plan AP: Erythema both feet T2DM HTN BGM QACHS Nutrition consult Continue Levemir 14 daily Increase Novolog coverage Hold Metformin for now Will F/U
--- NOTE | 2018-10-19 14:16 | PN ---
Physical Exam: SUBJECTIVE: Patient seen and examined. No acute events overnight. Pt states that back pain and rash pain is better tolerated on current pain meds. OBJECTIVE: Vital Signs Period Temp Pulse Resp BP Sys/Katz Pulse Ox Last 24 Hr 97.6 F-98.3 F 61-66 16-20 150-154/74-77 100-100 GENERAL: The patient is awake, alert, and fully oriented, in no acute distress. HEAD: Normal with no signs of trauma. EYES: PERRL, extraocular movements intact, sclera anicteric, conjunctiva clear. No ptosis. ENT: Ears normal, nares patent, oropharynx clear without exudates, moist mucous membranes. NECK: Trachea midline, full range of motion, supple. LUNGS: Breath sounds equal, clear to auscultation bilaterally, no wheezes, no crackles, no accessory muscle use. HEART: Regular rate and rhythm, S1, S2 without murmur, rub or gallop. ABDOMEN: Soft, nontender, nondistended, normoactive bowel sounds, no guarding, no rebound, no hepatosplenomegaly, no masses. EXTREMITIES: 2+ pulses, warm, well-perfused, no edema. NEUROLOGICAL: Cranial nerves II through XII grossly intact. Normal speech, gait not observed. PSYCH: Normal mood, normal affect. SKIN: Erythema on medial and lateral feet, macular papular, also on soles, on medial right foot darker center with some edema, tenderness to touch, soles of hands with some papules and erythema. Unchanged compared to markers placed on skin yesterday. No open lesions or deep infection noted. Laboratory Results - last 24 hr CBC, BMP 10/19/18 06:13 10/19/18 06:13 Active Medications Acetaminophen (Tylenol -) 650 mg PO Q4H PRN PRN Reason: PAIN Last Admin: 10/18/18 21:25 Dose: 650 mg Atorvastatin Calcium (Lipitor -) 40 mg PO HS VINCENT Enalapril Maleate (Vasotec -) 10 mg PO DAILY VINCENT Last Admin: 10/19/18 11:27 Dose: 10 mg Cefazolin Sodium/Dextrose (Ancef 2 Gm Premixed Ivpb -) 2 gm in 50 mls @ 100 mls /hr IVPB Q8H-IV VINCENT Last Admin: 10/19/18 09:28 Dose: 100 mls/hr Insulin Aspart (Novolog Vial Sliding Scale -) 1 vial SQ HS VINCENT; Protocol Insulin Aspart (Novolog Vial Sliding Scale -) 1 vial SQ TIDAC VINCENT; Protocol Insulin Detemir (Levemir Vial) 14 units SQ AM VINCENT Last Admin: 10/19/18 11:29 Dose: 14 units Lidocaine (Lidoderm Patch -) 1 patch TP DAILY@1800 [facility]ENT Last Admin: 10/18/18 19:33 Dose: 1 patch Miscellaneous (Lidoderm Patch Removal) 1 each MC DAILY@0600 [facility] Last Admin: 10/19/18 06:16 Dose: 1 each Oxycodone HCl (Roxicodone -) 2.5 mg PO Q4H PRN PRN Reason: PAIN LEVEL 4 - 6 Last Admin: 10/18/18 15:40 Dose: 2.5 mg Silver Sulfadiazine (Silvadene -) 1 applic TP BID VINCENT Zinc Acetate/Diphenhydramine (Benadryl 2% Cream) 1 applic TP DAILY PRN PRN Reason: WOUND CARE Last Admin: 10/19/18 13:53 Dose: 1 applic ASSESSMENT/PLAN: Patient is a 63 y/o male with a history of HTN and IDDM who presents for skin changes on his bilateral feet. 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 Davies) on board: cont Levemir 14 units daily and increase Novolog coverage Hold metformin for now BGMS ACHS Nutrition consulted #Lower back pain Chronic, pt denies fall or trauma Lumbar XR: no fractures or pathology Lidocaine patch, pt tolerating well #HTN Controlled as per now Pt states he takes Enalapril at home. Will confirm with pharmacy when open on Friday. #DVT ppx Lovenox 40 sq #FEN Low sodium and diabetic diet No fluids at this time #Dispo: monitor on med surg Visit type - Emergency Visit Emergency Visit: No - New Patient This patient is new to me today: No - Critical Care Critical Care patient: No ATTENDING PHYSICIAN STATEMENT I saw and evaluated the patient. I reviewed the resident's note and discussed the case with the resident. I agree with the resident's findings and plan as documented. SUBJECTIVE: OBJECTIVE: ASSESSMENT AND PLAN:
[2018-10-19] MEDS: SILVER SULFADIAZINE 1% TOP CREAM 50 GM JAR TP SCH ×2 (15:20→21:50)
[2018-10-19] MEDS ORDERED: INSULIN (NOVOLOG) ASPART 100 UNITS/ML 10ML VIAL ONE (16:38)
[2018-10-19] MEDS ORDERED: INSULIN (LEVEMIR) 100 UNITS/ML UNITS SQ ONE (16:38)
[2018-10-19] MEDS: LIDOCAINE 5% TOPICAL PATCH TP SCH (17:08)
[2018-10-19] MEDS ORDERED: INSULIN SLIDING SCALE (NOVOLOG) 1 VIAL SQ SCH (22:00)
[2018-10-19] MEDS ORDERED: ATORVASTATIN CA 40 MG TABLET (FP) PO SCH (22:00)
[2018-10-20] MEDS: CEFAZOLIN 2 GM/D5W 2 GM/50 ML ML IVPB SCH ×2 (01:47→09:43)
[2018-10-20] MEDS: LIDOCAINE PATCH REMOVAL MC SCH (06:10)
[2018-10-20] MEDS: INSULIN (LEVEMIR) 100 UNITS/ML UNITS SQ SCH (06:11)
[2018-10-20] MEDS: INSULIN SLIDING SCALE (NOVOLOG) 1 VIAL SQ SCH ×3 (06:14→16:42)
[2018-10-20 06:45] LABS: HEMATOCRIT 41.5 % (35.4-49); HEMOGLOBIN 14.7 GM/dL (11.7-16.9); MCHC 35.4 g/dl (32.0-35.9); MEAN CELL VOLUME 84.7 fl (80-96); MEAN PLT VOLUME 7.9 fl (7.5-11.1); PLATELET COUNT 211 K/MM3 (134-434); RDW 12.6 % (11.9-15.9); WHITE BLOOD COUNT 5.6 K/mm3 (4.0-10.0)
[2018-10-20 07:07] LABS: ALBUMIN 3.1 g/dl (3.4-5.0); BILIRUBIN,TOTAL 0.5 mg/dL (0.2-1); BLOOD UREA NITROGEN 24.3 mg/dL (7-18); CALCIUM 8.3 mg/dL (8.5-10.1); CREATININE 0.9 mg/dL (0.55-1.3); POTASSIUM 4.6 mmol/L (3.5-5.1); TOT PROT 6.1 g/dl (6.4-8.2)
--- NOTE | 2018-10-20 08:55 | PN ---
Progress Note (short form) - Note Progress Note: C/O Itching of feet erythema of lower lips Vital Signs Period Temp Pulse Resp BP Sys/Katz Pulse Ox Last 24 Hr 97.4 F-98.9 F 63-73 18-20 143-154/68-74 100-100 PE: AOx3 Neck: Supple, No JVD HEENT: EOMI, erythema lower lip. Glossitis Lungs: CTA CVS: S1S2 Abd; Benign Ext: Erythema b/l feet Neuro: No focal deficit CMP Sodium 136 mmol/L (136-145) 10/20/18 06:08 Potassium 4.6 mmol/L (3.5-5.1) 10/20/18 06:08 Chloride 104 mmol/L (98-107) 10/20/18 06:08 Carbon Dioxide 25 mmol/L (21-32) 10/20/18 06:08 Anion Gap 8 MMOL/L (8-16) 10/20/18 06:08 BUN 24.3 mg/dL (7-18) H 10/20/18 06:08 Creatinine 0.9 mg/dL (0.55-1.3) 10/20/18 06:08 Est GFR (CKD-EPI)AfAm 104.24 10/20/18 06:08 Est GFR (CKD-EPI)NonAf 89.94 10/20/18 06:08 POC Glucometer 255 UNITS (80-120) 10/20/18 06:09 Random Glucose 236 mg/dL (74-106) H 10/20/18 06:08 Hemoglobin A1c % 10.3 % (4.2-6.3) H 10/17/18 06:30 Lactic Acid 1.1 mmol/L (0.4-2.0) 10/16/18 16:00 Calcium 8.3 mg/dL (8.5-10.1) L 10/20/18 06:08 Phosphorus 4.1 mg/dL (2.5-4.9) 10/17/18 06:30 Magnesium 2.3 mg/dL (1.8-2.4) 10/17/18 06:30 Total Bilirubin 0.5 mg/dL (0.2-1) 10/20/18 06:08 AST 26 U/L (15-37) 10/20/18 06:08 ALT 23 U/L (13-61) 10/20/18 06:08 Alkaline Phosphatase 88 U/L (45-117) 10/20/18 06:08 Total Protein 6.1 g/dl (6.4-8.2) L 10/20/18 06:08 Albumin 3.1 g/dl (3.4-5.0) L 10/20/18 06:08 Current Medications Generic Name Dose Route Start Last Admin Trade Name Freq PRN Reason Stop Dose Admin Acetaminophen 650 mg 10/16/18 20:57 10/18/18 21:25 Tylenol - PO 650 mg Q4H PRN Administration PAIN Atorvastatin Calcium 40 mg 10/19/18 22:00 10/19/18 21:43 Lipitor - PO 40 mg HS VINCENT Administration Enalapril Maleate 10 mg 10/19/18 10:00 10/19/18 11:27 Vasotec - PO 10 mg DAILY VINCENT Administration Cefazolin Sodium/Dextrose 2 gm in 50 mls @ 100 mls/hr 10/17/18 12:15 01:47 Ancef 2 Gm Premixed Ivpb - IVPB 100 mls/hr Q8H-IV VINCENT Administration Insulin Aspart 1 vial 10/19/18 22:00 10/19/18 21:42 Novolog Vial Sliding Scale - SQ 2 units HS VINCENT Administration Protocol Insulin Aspart 1 vial 10/19/18 16:30 10/20/18 06:14 Novolog Vial Sliding Scale - SQ 8 units TIDAC VINCENT Administration Protocol Insulin Detemir 14 units 10/19/18 10:00 10/20/18 06:11 Levemir Vial SQ 14 units AM VINCENT Administration Lidocaine 1 patch 10/18/18 18:00 10/19/18 17:08 Lidoderm Patch - TP 1 patch DAILY@1800 [facility] Administration Miscellaneous 1 each 10/19/18 06:00 10/20/18 06:10 Lidoderm Patch Removal MC 1 each DAILY@0600 [facility] Administration Silver Sulfadiazine 1 applic 10/19/18 10:00 10/19/18 21:50 Silvadene - TP 1 applic BID VINCENT Administration Zinc Acetate/Diphenhydramine 1 applic 10/18/18 18:15 10/19/18 13:53 Benadryl 2% Cream TP 1 applic DAILY PRN Administration WOUND CARE AP: Erythema both feet/Glossitis T2DM HTN BGM QACHS Nutrition consult Continue Levemir 14 daily Novolog coverage Hold Metformin for now Consider Rheumatology/Derm referral Will F/U
[2018-10-20] MEDS: SILVER SULFADIAZINE 1% TOP CREAM 50 GM JAR TP SCH (09:43)
[2018-10-20] MEDS ORDERED: LOSARTAN POTASSIUM 50 MG TABLET (FP) PO SCH (10:00)
[2018-10-20] MEDS: ACETAMINOPHEN 325 MG TABLET (FP) PO PRN (13:48)
[2018-10-20] MEDS ORDERED: SILVER SULFADIAZINE 1% TOP CREAM 50 GM JAR TP SCH (15:07)
[2018-10-20] MEDS ORDERED: LORATADINE 10 MG TABLET PO ONE (15:08)
--- NOTE | 2018-10-20 15:21 | PN ---
Progress Note, Physician History of Present Illness: AMBULATING W/O PAIN NO FEVER/ CHILLS - Current Medication List Current Medications: Active Medications Acetaminophen (Tylenol -) 650 mg PO Q4H PRN PRN Reason: PAIN Last Admin: 10/20/18 13:48 Dose: 650 mg Amlodipine Besylate (Norvasc -) 5 mg PO DAILY [facility] Atorvastatin Calcium (Lipitor -) 40 mg PO HS [facility] Last Admin: 10/19/18 21:43 Dose: 40 mg Cefazolin Sodium/Dextrose (Ancef 2 Gm Premixed Ivpb -) 2 gm in 50 mls @ 100 mls /hr IVPB Q8H-IV [facility] Last Admin: 10/20/18 09:43 Dose: 100 mls/hr Insulin Aspart (Novolog Vial Sliding Scale -) 1 vial SQ HS [facility]; Protocol Last Admin: 10/19/18 21:42 Dose: 2 units Insulin Aspart (Novolog Vial Sliding Scale -) 1 vial SQ TIDAC [facility]; Protocol Last Admin: 10/20/18 11:11 Dose: 10 units Insulin Detemir (Levemir Vial) 14 units SQ AM [facility] Last Admin: 10/20/18 06:11 Dose: 14 units Lidocaine (Lidoderm Patch -) 1 patch TP DAILY@1800 [facility] Last Admin: 10/19/18 17:08 Dose: 1 patch Miscellaneous (Lidoderm Patch Removal) 1 each MC DAILY@0600 [facility] Last Admin: 10/20/18 06:10 Dose: 1 each Silver Sulfadiazine (Silvadene -) 1 applic TP BID [facility] Zinc Acetate/Diphenhydramine (Benadryl 2% Cream) 1 applic TP DAILY PRN PRN Reason: WOUND CARE Last Admin: 10/19/18 13:53 Dose: 1 applic - Objective Vital Signs: Vital Signs Temperature 99.2 F 10/20/18 14:27 Pulse Rate 77 10/20/18 14:27 Respiratory Rate 18 10/20/18 10:00 Blood Pressure 121/72 10/20/18 14:27 O2 Sat by Pulse Oximetry (%) 99 10/20/18 09:00 Constitutional: Yes: No Distress Cardiovascular: Yes: Regular Rate and Rhythm, S1, S2 Respiratory: Yes: CTA Bilaterally Gastrointestinal: Yes: Normal Bowel Sounds, Soft. No: Tenderness Extremities: Yes: Other (DECREASED ERYTHEMA FEET BILAT) Labs: CBC, BMP 10/20/18 06:08 10/20/18 06:08 INR, PTT INR 0.94 (0.83-1.09) 10/16/18 16:00 Assessment/Plan BILATERAL FOOT CELLULITIS DIABETES SUBSTITUTE KEFLEX 500MG PO QID 7D OUTPATIENT F/U
--- NOTE | 2018-10-20 15:52 | PN ---
Teaching Attending Note Name of Resident: Cristiano Coronel ATTENDING PHYSICIAN STATEMENT I saw and evaluated the patient. I reviewed the resident's note and discussed the case with the resident. I agree with the resident's findings and plan as documented. SUBJECTIVE: Patient is feeling better, lower extremity is better improving. OBJECTIVE: Vital Signs Temperature 99.2 F 10/20/18 14:27 Pulse Rate 77 10/20/18 14:27 Respiratory Rate 18 10/20/18 10:00 Blood Pressure 121/72 10/20/18 14:27 O2 Sat by Pulse Oximetry (%) 99 10/20/18 09:00 GENERAL: Awake, alert, and fully oriented, in no acute distress. HEAD: Normal with no signs of trauma. EYES: Pupils equal, round and reactive to light, extraocular movements intact, LUNGS: Breath sounds equal, clear to auscultation bilaterally. No wheezes, and no crackles. No accessory muscle use. HEART: Regular rate and rhythm, normal S1 and S2 without murmur, rub or gallop. pacemaker upper left chest ABDOMEN: Soft, nontender, not distended, normoactive bowel sounds, no guarding EXTREMITIES: 2+ pulses, warm, well-perfused. No calf tenderness. erythema of left foot more than right foot, improving NEUROLOGICAL: Cranial nerves II-XII intact. Normal speech. Normal gait. SKIN: erythema on medial and lateral feet, tenderness to touch CBCD WBC 5.6 K/mm3 (4.0-10.0) 10/20/18 06:08 RBC 4.90 M/mm3 (4.00-5.60) 10/20/18 06:08 Hgb 14.7 GM/dL (11.7-16.9) 10/20/18 06:08 Hct 41.5 % (35.4-49) 10/20/18 06:08 MCV 84.7 fl (80-96) 10/20/18 06:08 MCHC 35.4 g/dl (32.0-35.9) 10/20/18 06:08 RDW 12.6 % (11.9-15.9) 10/20/18 06:08 Plt Count 211 K/MM3 (134-434) 10/20/18 06:08 MPV 7.9 fl (7.5-11.1) 10/20/18 06:08 CMP Sodium 136 mmol/L (136-145) 10/20/18 06:08 Potassium 4.6 mmol/L (3.5-5.1) 10/20/18 06:08 Chloride 104 mmol/L (98-107) 10/20/18 06:08 Carbon Dioxide 25 mmol/L (21-32) 10/20/18 06:08 Anion Gap 8 MMOL/L (8-16) 10/20/18 06:08 BUN 24.3 mg/dL (7-18) H 10/20/18 06:08 Creatinine 0.9 mg/dL (0.55-1.3) 10/20/18 06:08 Random Glucose 236 mg/dL (74-106) H 10/20/18 06:08 Calcium 8.3 mg/dL (8.5-10.1) L 10/20/18 06:08 Total Bilirubin 0.5 mg/dL (0.2-1) 10/20/18 06:08 AST 26 U/L (15-37) 10/20/18 06:08 ALT 23 U/L (13-61) 10/20/18 06:08 Alkaline Phosphatase 88 U/L (45-117) 10/20/18 06:08 Total Protein 6.1 g/dl (6.4-8.2) L 10/20/18 06:08 Albumin 3.1 g/dl (3.4-5.0) L 10/20/18 06:08 Current Medications Generic Name Dose Route Start Last Admin Trade Name Freq PRN Reason Stop Dose Admin Acetaminophen 650 mg 10/16/18 20:57 10/20/18 13:48 Tylenol - PO 650 mg Q4H PRN Administration PAIN Amlodipine Besylate 5 mg 10/21/18 10:00 Norvasc - PO DAILY [facility] Atorvastatin Calcium 40 mg 10/19/18 22:00 10/19/18 21:43 Lipitor - PO 40 mg HS [facility] Administration Cefazolin Sodium/Dextrose 2 gm in 50 mls @ 100 mls/hr 10/17/18 12:15 09:43 Ancef 2 Gm Premixed Ivpb - IVPB 100 mls/hr Q8H-IV [facility] Administration Insulin Aspart 1 vial 10/19/18 22:00 10/19/18 21:42 Novolog Vial Sliding Scale - SQ 2 units HS [facility] Administration Protocol Insulin Aspart 1 vial 10/19/18 16:30 10/20/18 11:11 Novolog Vial Sliding Scale - SQ 10 units TIDAC [facility] Administration Protocol Insulin Detemir 14 units 10/19/18 10:00 10/20/18 06:11 Levemir Vial SQ 14 units AM [facility] Administration Lidocaine 1 patch 10/18/18 18:00 10/19/18 17:08 Lidoderm Patch - TP 1 patch DAILY@1800 [facility] Administration Miscellaneous 1 each 10/19/18 06:00 10/20/18 06:10 Lidoderm Patch Removal MC 1 each DAILY@0600 [facility] Administration Silver Sulfadiazine 1 applic 10/20/18 15:07 Silvadene - TP BID [facility] Zinc Acetate/Diphenhydramine 1 applic 10/18/18 18:15 10/19/18 13:53 Benadryl 2% Cream TP 1 applic DAILY PRN Administration WOUND skilled nursing Medications Medication Instructions Recorded Atorvastatin Ca [Lipitor] 40 mg PO HS 10/19/18 Pantoprazole Sodium [Protonix] 40 mg PO DAILY 10/19/18 Amlodipine Besylate [Norvasc -] 5 mg PO DAILY #30 tablet 10/20/18 Cephalexin [Keflex] 500 mg PO QID #28 capsule 10/20/18 Insulin Aspart [Novolog] 6 unit SQ TID #4 cartridge 10/20/18 Insulin Detemir [Levemir Flextouch] 14 unit SQ AM #400 insuln.pen 10/20/18 Lidocaine 5% Patch [Lidoderm -] 1 patch TP DAILY@1800 #10 patch 10/20/18 Silver Sulfadiazine 1% Top Cr 1 applic TP BID #1 jar 10/20/18 [Silvadene -] ASSESSMENT AND PLAN: Patient is a 63 y/o male with a history of HTN and IDDM who presented for cellulitis of bilateral LEs. #Acute bl cellulitis of lower extremities; L>R improving, we can discharge the patient on Silvadene cream to apply 2x per day over the left foot blisteres area. 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 #HTN : DO NOT CONTINUE ENALAPRIL at home continue with Norvasc 5mg po daily discharge patient home.
[2018-10-20 15:57] VITALS: BP 121/72; PULSE 77; TEMP 99.2
[2018-10-21] MEDS ORDERED: amLODIPine BESYLATE 5 MG TABLET (FP) PO SCH (10:00)
== END 2018-10-20 17:49 | disposition home or self-care (01) | DRG 383 ==
LOC: JER 11:44 → JERBED 20:28 → OBSVTOIN 20:58 → J7W 10-17 02:48
PROVIDERS: ADMIT Internal Medicine; ATTEND Internal Medicine
DX: L03.116 Cellulitis of left lower limb (principal); L03.115 Cellulitis of right lower limb; I10 Essential (primary) hypertension; M54.5 Low back pain; K14.0 Glossitis; Z95.0 Presence of cardiac pacemaker; E11.9 Type 2 diabetes mellitus without complications; Z79.4 Long term (current) use of insulin
CPT/HCPCS: 36415; 72100-TC-FY; 73630-TC-LT; 73630-TC-RT-FY; 80053; 82962; 83036; 83605; 83735; 84100; 85025; 85027; 85610; 86593; 87389; 93005; 93010; 93971-TC; 99282-25; G0378

== ENCOUNTER 2024-04-11 15:16 | Observation (INO) | payer OTHER ==
[2024-04-11 15:57] VITALS: BMI 23.6
[2024-04-11 17:02] LABS: BASO % 0.6 % (0-2.0); EOS % 0.1 % (0-4.5); HEMATOCRIT 44.6 % (35.4-49); HEMOGLOBIN 15.1 GM/dL (11.7-16.9); LYMPH % 7.3 % (8-40); MCH 29.2 pg (25.7-33.7); MCHC 33.9 g/dl (32.0-35.9); MEAN CELL VOLUME 86.1 fl (80-96); MEAN PLT VOLUME 7.4 fl (7.5-11.1); MONO % 3.7 % (3.8-10.2); NEUT % 88.3 % (42.8-82.8); PLATELET COUNT 248 10^3/uL (134-434); RBC 5.18 M/mm3 (4.00-5.60); RDW 12.6 % (11.9-15.9); WHITE BLOOD COUNT 10.7 K/mm3 (4.0-10.0)
[2024-04-11] MEDS ORDERED: PANTOPRAZOLE SODIUM 40 MG VIAL ONE (17:05)
[2024-04-11] MEDS ORDERED: ONDANSETRON 4 MG/2 ML VIAL ONE (17:05)
[2024-04-11 17:11] LABS: INR 0.94 (0.83-1.09); PROTHROMBIN TIME (PATIENT) 10.8 SEC (9.7-13.0)
[2024-04-11] MEDS: ONDANSETRON 4 MG/2 ML VIAL IVPUSH ONE (17:16)
[2024-04-11] MEDS: PANTOPRAZOLE SODIUM 40 MG VIAL IVPUSH ONE ×2 (17:16→17:17)
[2024-04-11] MEDS: LACTATED RINGERS SOLUTION 1000 ML INFUS.BAG IV ONE ×2 (17:17→18:45)
[2024-04-11 17:28] LABS: ALBUMIN 3.2 g/dl (3.4-5.0); BLOOD UREA NITROGEN 35.1 mg/dL (7-18); MAGNESIUM 2.1 mg/dL (1.8-2.4)
[2024-04-11 17:30] LABS: CREATININE 1.4 mg/dL (0.55-1.3)
[2024-04-11 17:31] LABS: BILIRUBIN,TOTAL 0.6 mg/dL (0.2-1)
[2024-04-11 17:33] LABS: TOT PROT 6.7 g/dl (6.4-8.2)
[2024-04-11] MEDS ORDERED: MECLIZINE HCL 25 MG TABLET (FP) ONE (23:04)
[2024-04-11] MEDS ORDERED: ACETAMINOPHEN 325 MG TABLET (FP) ONE (23:04)
[2024-04-11] MEDS: ACETAMINOPHEN 325 MG TABLET (FP) PO ONE (23:07)
[2024-04-11] MEDS: MECLIZINE HCL 25 MG TABLET (FP) PO ONE (23:07)
[2024-04-11 23:56] LABS: HEMATOCRIT 40.9 % (35.4-49); HEMOGLOBIN 13.9 GM/dL (11.7-16.9); MCH 29.3 pg (25.7-33.7); MCHC 34.1 g/dl (32.0-35.9); MEAN CELL VOLUME 86.1 fl (80-96); MEAN PLT VOLUME 7.1 fl (7.5-11.1); PLATELET COUNT 236 10^3/uL (134-434); RBC 4.75 M/mm3 (4.00-5.60); RDW 12.4 % (11.9-15.9); WHITE BLOOD COUNT 9.9 K/mm3 (4.0-10.0)
[2024-04-12 03:26] LABS: EPI CELLS 7 /uL (0-25.1); HYALINE CASTS 0 /uL (0-3.1); URINE APPEARANCE CLEAR; URINE BACTERIA 171 /uL (0-1359); URINE BILIRUBIN NEGATIVE (NEGATIVE); URINE COLOR YELLOW; URINE GLUCOSE (UA) 3+ (NEGATIVE); URINE KETONE NEGATIVE (NEGATIVE); URINE LEUK ESTERASE NEGATIVE (NEGATIVE); URINE NITRITE NEGATIVE (NEGATIVE); URINE PROTEIN 3+ (NEGATIVE); URINE RBC 6 /uL (0-23.9); URINE UROBILINOGEN 0.2 mg/dL (0.2-1.0); URINE WBC 7 /uL (0-25.8)
[2024-04-12] MEDS ORDERED: MECLIZINE HCL 25 MG TABLET (FP) ONE (06:28)
[2024-04-12] MEDS: DEXTROSE 5%-0.45% SALINE 1,000 ML IV SCH (06:38)
[2024-04-12] MEDS: MECLIZINE HCL 25 MG TABLET (FP) PO SCH (06:38)
[2024-04-12] MEDS: INSULIN ASPART SLIDING SCALE (NOVOLOG) 1 VIAL SQ SCH (07:44)
[2024-04-12] MEDS ORDERED: amLODIPine BESYLATE 5 MG TABLET (FP) ONE (07:51)
[2024-04-12] MEDS ORDERED: POLYETHYLENE GLYCOL (HEALTHYLAX) 3350 17 GM PACKET ONE (07:51)
[2024-04-12] MEDS ORDERED: ENOXAPARIN NA (PORCINE) 40 MG/0.4 ML DISP.SYRIN SQ ONE (07:51)
[2024-04-12] MEDS ORDERED: ATENOLOL 50 MG TABLET (FP) ONE (07:51)
[2024-04-12] MEDS ORDERED: amLODIPine BESYLATE 10 MG TABLET (FP) ONE (07:52)
[2024-04-12] MEDS: POLYETHYLENE GLYCOL (HEALTHYLAX) 3350 17 GM PACKET PO SCH (09:21)
[2024-04-12] MEDS: ENOXAPARIN NA (PORCINE) 40 MG/0.4 ML DISP.SYRIN SQ SCH (09:21)
[2024-04-12] MEDS: ATENOLOL 50 MG TABLET (FP) PO SCH (09:51)
[2024-04-12] MEDS: amLODIPine BESYLATE 10 MG TABLET (FP) PO SCH (09:51)
[2024-04-12 12:13] LABS: HEMATOCRIT 41.9 % (35.4-49); HEMOGLOBIN 14.6 GM/dL (11.7-16.9); MCH 29.9 pg (25.7-33.7); MCHC 34.7 g/dl (32.0-35.9); MEAN CELL VOLUME 86.2 fl (80-96); MEAN PLT VOLUME 8.1 fl (7.5-11.1); PLATELET COUNT 237 10^3/uL (134-434); RBC 4.87 M/mm3 (4.00-5.60); RDW 12.6 % (11.9-15.9); WHITE BLOOD COUNT 7.4 K/mm3 (4.0-10.0)
[2024-04-12 12:25] LABS: POTASSIUM 4.6 mmol/L (3.5-5.1)
[2024-04-12 12:29] LABS: CALCIUM 8.3 mg/dL (8.5-10.1)
[2024-04-12 12:31] LABS: ALBUMIN 2.8 g/dl (3.4-5.0); BLOOD UREA NITROGEN 30.5 mg/dL (7-18)
[2024-04-12 12:32] LABS: BILIRUBIN,TOTAL 0.5 mg/dL (0.2-1)
[2024-04-12 12:33] LABS: CREATININE 1.7 mg/dL (0.55-1.3)
[2024-04-12] MEDS: CARBAMIDE PEROXIDE 6.5% OTIC 15 ML BOTTLE AS SCH (21:58)
[2024-04-12] MEDS ORDERED: CARBAMIDE PEROXIDE 6.5% OTIC 15 ML BOTTLE AD SCH (22:00)
[2024-04-12] MEDS: ATORVASTATIN CA 40 MG TABLET (FP) PO SCH (22:01)
[2024-04-13 08:32] LABS: BASO % 1.2 % (0-2.0); HEMATOCRIT 43.5 % (35.4-49); HEMOGLOBIN 15.1 GM/dL (11.7-16.9); LYMPH % 27.1 % (8-40); MCH 29.7 pg (25.7-33.7); MCHC 34.6 g/dl (32.0-35.9); MEAN CELL VOLUME 85.9 fl (80-96); MEAN PLT VOLUME 7.7 fl (7.5-11.1); MONO % 8.6 % (3.8-10.2); NEUT % 58.1 % (42.8-82.8); PLATELET COUNT 249 10^3/uL (134-434); RBC 5.07 M/mm3 (4.00-5.60); RDW 12.7 % (11.9-15.9); WHITE BLOOD COUNT 6.9 K/mm3 (4.0-10.0)
[2024-04-13 08:39] LABS: CALCIUM 8.4 mg/dL (8.5-10.1); POTASSIUM 4.4 mmol/L (3.5-5.1)
[2024-04-13 08:41] LABS: ALBUMIN 2.7 g/dl (3.4-5.0); BLOOD UREA NITROGEN 33.6 mg/dL (7-18)
[2024-04-13 08:43] LABS: CREATININE 1.5 mg/dL (0.55-1.3)
[2024-04-13 08:44] LABS: PHOSPHOROUS 3.7 mg/dL (2.5-4.9)
[2024-04-13 08:45] LABS: BILIRUBIN,TOTAL 0.5 mg/dL (0.2-1)
[2024-04-13 08:52] LABS: EPI CELLS 3 /uL (0-25.1); HYALINE CASTS 0 /uL (0-3.1); PH,URINE 6.5 (5.0-8.0); URINE APPEARANCE CLEAR; URINE BACTERIA 54 /uL (0-1359); URINE BILIRUBIN NEGATIVE (NEGATIVE); URINE COLOR YELLOW; URINE GLUCOSE (UA) 3+ (NEGATIVE); URINE KETONE NEGATIVE (NEGATIVE); URINE LEUK ESTERASE NEGATIVE (NEGATIVE); URINE NITRITE NEGATIVE (NEGATIVE); URINE PROTEIN 3+ (NEGATIVE); URINE RBC 5 /uL (0-23.9); URINE WBC 3 /uL (0-25.8)
[2024-04-13] MEDS: PANTOPRAZOLE 40 MG TABLET PO SCH (10:01)
[2024-04-13] MEDS: INSULIN (LEVEMIR) 100 UNITS/ML UNITS SQ SCH (17:00)
[2024-04-13] MEDS ORDERED: TRIAMTERENE AND HCTZ - 37.5 MG/25 MG CAPSULE PO SCH (17:00)
[2024-04-13] MEDS: DOCUSATE SODIUM 100 MG CAPSULE (FP) PO SCH (17:19)
[2024-04-13] MEDS: POLYETHYLENE GLYCOL (HEALTHYLAX) 3350 17 GM PACKET PO SCH (17:19)
[2024-04-13] MEDS: SENNOSIDES 8.6MG TABLET (FP) PO SCH (17:19)
[2024-04-14 10:05] LABS: BASO % 0.9 % (0-2.0); EOS % 4.3 % (0-4.5); HEMATOCRIT 46.1 % (35.4-49); HEMOGLOBIN 15.4 GM/dL (11.7-16.9); MCH 29.3 pg (25.7-33.7); MCHC 33.4 g/dl (32.0-35.9); MEAN CELL VOLUME 87.8 fl (80-96); MONO % 10.3 % (3.8-10.2); NEUT % 60.5 % (42.8-82.8); PLATELET COUNT 265 10^3/uL (134-434); RBC 5.25 M/mm3 (4.00-5.60); RDW 12.6 % (11.9-15.9); WHITE BLOOD COUNT 7.8 K/mm3 (4.0-10.0)
[2024-04-14 10:28] LABS: POTASSIUM 4.9 mmol/L (3.5-5.1)
[2024-04-14 10:40] LABS: CALCIUM 8.6 mg/dL (8.5-10.1)
[2024-04-14 10:41] LABS: ALBUMIN 2.9 g/dl (3.4-5.0); BLOOD UREA NITROGEN 33.6 mg/dL (7-18)
[2024-04-14 10:43] LABS: BILIRUBIN,TOTAL 0.6 mg/dL (0.2-1); CREATININE 1.5 mg/dL (0.55-1.3)
[2024-04-14 10:45] LABS: TOT PROT 6.2 g/dl (6.4-8.2)
[2024-04-15] MEDS: SODIUM CHLORIDE 1,000 ML IV SCH (13:04)
[2024-04-16] MEDS: PENICILLIN G BENZATHINE 2,400,000 UNIT/4 ML PFS IM ONE (15:59)
[2024-04-18] MEDS: ACETAMINOPHEN 500 MG TABLET (FP) PO ONE (23:23)
[2024-04-19 09:30] LABS: HEMATOCRIT 41.4 % (35.4-49); HEMOGLOBIN 14.3 GM/dL (11.7-16.9); MCH 29.6 pg (25.7-33.7); MCHC 34.6 g/dl (32.0-35.9); MEAN CELL VOLUME 85.7 fl (80-96); MEAN PLT VOLUME 7.6 fl (7.5-11.1); PLATELET COUNT 205 10^3/uL (134-434); RBC 4.83 M/mm3 (4.00-5.60); RDW 12.5 % (11.9-15.9); WHITE BLOOD COUNT 5.4 K/mm3 (4.0-10.0)
[2024-04-19 09:56] LABS: POTASSIUM 4.7 mmol/L (3.5-5.1)
[2024-04-19 10:11] LABS: ALBUMIN 2.7 g/dl (3.4-5.0); CALCIUM 8.8 mg/dL (8.5-10.1)
[2024-04-19 10:12] LABS: BLOOD UREA NITROGEN 41.5 mg/dL (7-18)
[2024-04-19 10:15] LABS: BILIRUBIN,TOTAL 0.6 mg/dL (0.2-1); CREATININE 1.6 mg/dL (0.55-1.3)
[2024-04-19 10:16] LABS: TOT PROT 5.9 g/dl (6.4-8.2)
[2024-04-19] MEDS ORDERED: INSULIN (LEVEMIR) 100 UNITS/ML UNITS SQ ONE (11:05)
[2024-04-19 15:14] VITALS: BP 154/73; PULSE 62; RESP 18; TEMP 97.7
== END 2024-04-19 16:53 | disposition home or self-care (01) ==
LOC: JER 15:16 → JERBED 22:49 → J8W 04-12 09:53
PROVIDERS: ADMIT Internal Medicine
PROC: 3E023GC Introduction of Other Therapeutic Substance into Muscle, Percutaneous Approach (ICD-10-PCS; principal; 2024-04-11)
PROC: 3E013VG Introduction of Insulin into Subcutaneous Tissue, Percutaneous Approach (ICD-10-PCS; 2024-04-11)
PROC: 3E033GC Introduction of Other Therapeutic Substance into Peripheral Vein, Percutaneous Approach (ICD-10-PCS; 2024-04-11)
PROC: 3E0337Z Introduction of Electrolytic and Water Balance Substance into Peripheral Vein, Percutaneous Approach (ICD-10-PCS; 2024-04-11)
PROC: 3E02329 Introduction of Other Anti-infective into Muscle, Percutaneous Approach (ICD-10-PCS; 2024-04-11)
DX: H81.10 Benign paroxysmal vertigo, unspecified ear (principal); N17.9 Acute kidney failure, unspecified; H93.12 Tinnitus, left ear; E11.9 Type 2 diabetes mellitus without complications; Z45.010 Encounter for checking and testing of cardiac pacemaker pulse generator [battery]; I10 Essential (primary) hypertension; K29.70 Gastritis, unspecified, without bleeding; A53.9 Syphilis, unspecified; Z88.8 Allergy status to other drugs, medicaments and biological substances
CPT/HCPCS: 0241U-QW; 36415; 70450-TC; 71045-TC-FY; 74176-TC; 76775-TC; 80053; 80061; 81003; 82272; 82550; 82553; 82570; 82962; 83036; 83605; 83690; 83735; 84100; 84156; 84439; 84443; 84484; 85025; 85027; 85610; 86593; 86780; 86850; 86900; 86901; 93005; 93010; 93306-TC; 93880-TC; 96361; 96372; 96374; 96375; 97116-GP; 97161-GP; 99285-25; G0378